=== PATIENT | male | born 1935 | race Caucasian/White ===

== ENCOUNTER 2017-03-14 12:34 | Emergency (ER) | payer MEDICARE ==
[2017-03-14 12:45] VITALS: BMI 24.6
--- NOTE | 2017-03-14 13:50 | C.PDOC ---
History Of Present Illness 81 y/o M c PMHx HTN, HLD, "circulation problem in legs," GERD, hernia repair, R cataract repair, R knee surgery p/w fall yesterday. Patient was walking up stairs from laundry, felt hot in room, felt weak in knees and fell down onto knees. Patient was witnessed by neighbor who states he was unresponsive for 30 seconds and then states patient returned to baseline. No symptoms afterwards. Went to PMD today and instructed to come to ED. Recent cold 1 week prior, now resolved. Quit smoking over 20 years ago. PMD Ruy Gallagher Chief Complaint (Nursing): Syncope History Per: Patient History/Exam Limitations: no limitations Onset/Duration Of Symptoms: Hrs Current Symptoms Are (Timing): Still Present Activity At Onset Of Symptoms: Walking Past Medical History Reviewed: Historical Data, Nursing Documentation, Vital Signs Vital Signs: Last Vital Signs Temp 97.7 F 03/14/17 12:44 Pulse 102 H 03/14/17 14:25 Resp 20 03/14/17 14:25 BP 153/69 H 03/14/17 14:25 Pulse Ox 95 03/14/17 15:38 - Medical History PMH: HTN, Hypercholesterolemia Surgical History: No Surg Hx Family History: States: No Known Family Hx - Social History Hx Alcohol Use: No Hx Substance Use: No - Immunization History Hx Tetanus Toxoid Vaccination: No Hx Influenza Vaccination: Yes Hx Pneumococcal Vaccination: No Review Of Systems Except As Marked, All Systems Reviewed And Found Negative. Constitutional: Negative for: Fever Cardiovascular: Negative for: Chest Pain Physical Exam - Physical Exam Additional Physical Exam Comments: Constitutional: No acute distress. Head: Normocephalic. Atraumatic. Eyes: PERRL. ENT: Moist mucous membranes. Neck: Supple. Cardiovascular: Regular rate. Radial pulse 2+ bilaterally. Chest: No tenderness. Respiratory: Clear to auscultation bilaterally. GI: Soft. Nontender. Nondistended.Pelvis stable. FROM x 4 Back: No CVA tenderness.No midline tenderness. Musculoskeletal: No tenderness or swelling of extremities. Skin: No rash. Neurologic: Alert, no focal deficit. . ED Course And Treatment - Laboratory Results Result Diagrams: 03/14/17 14:26 03/14/17 14:26 O2 Sat by Pulse Oximetry: 95 (RA) Pulse Ox Interpretation: Normal Medical Decision Making Medical Decision Making: EKG: Sinus rhythm, 70 bpm, RBBB, no ST elevations Assessment: 81 y/o M p/w syncopal episode without evidence of resulting trauma. Differential: arrhythmia, ischemia, seizure, stroke, vasovagal, dehydration/ orthostasis Plan: EKG, CBC, CMP, troponin, CXR, Orthostatic vital signs, IVF IMPRESSION: No active pulmonary disease. Orthostatics negative. Labs unremarkable. Discussed case with Dr. Redmond who recommends CT Head as well. In abscence of any significant findings, Dr. Redmond states patient can have further evaluation as outpatient. IMPRESSION: No acute intracranial abnormality. Mild age-related involutional changes. Disposition - Disposition Disposition: HOME/ ROUTINE Disposition Time: 15:35 Condition: STABLE Instructions: Syncope (ED) Forms: [facility] (Indonesian) - Clinical Impression Clinical Impression: Syncope - Scribe Statement The provider has reviewed the documentation as recorded by the Nelsonibzafar Corona All medical record entries made by the Nelsonibe were at my direction and personally dictated by me. I have reviewed the chart and agree that the record accurately reflects my personal performance of the history, physical exam, medical decision making, and the department course for this patient. I have also personally directed, reviewed, and agree with the discharge instructions and disposition.
[2017-03-14] MEDS ORDERED: Sodium Chloride 0.9% 1,000 ML IV STA (14:13)
[2017-03-14 14:26] VITALS: RESP 20
[2017-03-14 14:30] LABS: BASO # 0.1 K/uL (0.0-0.2); BASO % 0.8 % (0.0-2.0); EOS # 0.1 K/uL (0.0-0.7); EOS % 1.5 % (0.0-4.0); HEMATOCRIT 38.5 % (35.0-51.0); LYMPH # 1.6 K/uL (1.0-4.3); LYMPH % 15.8 % (20.0-40.0); MEAN CELL VOLUME 83.7 fL (80.0-94.0); MEAN CORPUSCULAR HEMOGLOBIN 29.6 pg (27.0-31.0); MEAN CORPUSCULAR HGB CONC 35.4 g/dL (33.0-37.0); MEAN PLATELET VOLUME 8.1 fL (7.2-11.7); MONO # 0.8 K/uL (0.0-0.8); RED CELL DISTRIBUTION WIDTH 14.2 % (11.5-14.5)
[2017-03-14] MEDS ORDERED: Sodium Chloride 0.9% 1,000 ML ONE (14:33)
[2017-03-14 14:43] LABS: BILIRUBIN,TOTAL 0.8 mg/dL (0.2-1.3); GFR AFRICAN-AMERICAN > 60; GLUCOSE,RANDOM 89 mg/dL (75-110)
[2017-03-14 14:47] LABS: ALB/GLOB RATIO 1.1 (1.0-2.1); ALKALINE PHOSPHATASE 59 U/L (38-126); ALT/SGPT 24 U/L (21-72); AST/SGOT 35 U/L (17-59); BLOOD UREA NITROGEN 24 mg/dL (9-20); CARBON DIOXIDE 26 mmol/L (22-30); CHLORIDE 101 mmol/L (98-107); POTASSIUM 4.1 mmol/L (3.6-5.2); SODIUM 136 mmol/L (132-148); TOTAL PROTEIN 8.2 g/dL (6.3-8.3)
--- NOTE | 2017-03-14 14:52 | RAD ---
HISTORY: COMPARISON: No prior. TECHNIQUE: Chest PA and lateral FINDINGS: LINES AND TUBES: None. LUNG AND PLEURA: The lungs are well inflated and clear. There is linear atelectasis/scarring in the left lung base. HEART AND MEDIASTINUM: The heart is not enlarged. The hilar and mediastinal contours are within normal limits. SKELETAL STRUCTURES: The bony structures are within normal limits for the patient's age. VISUALIZED UPPER ABDOMEN: Normal. OTHER FINDINGS: None. IMPRESSION: No active pulmonary disease.
--- NOTE | 2017-03-14 15:34 | CT ---
PROCEDURE: CT HEAD WITHOUT CONTRAST. HISTORY: syncope COMPARISON: None available. TECHNIQUE: Axial computed tomography images were obtained through the head/brain without intravenous contrast. Radiation dose: Total exam DLP = 862.97 mGy-cm. This CT exam was performed using one or more of the following dose reduction techniques: Automated exposure control, adjustment of the mA and/or kV according to patient size, and/or use of iterative reconstruction technique. FINDINGS: HEMORRHAGE: No intracranial hemorrhage. BRAIN: Marcano-white matter differentiation is preserved. There is no mass, mass effect or abnormal extra-axial fluid collection. VENTRICLES: There is mild age-related global parenchymal volume loss and proportionate enlargement of the ventricles and cortical sulci. CALVARIUM: The skull base and calvarium are normal. PARANASAL SINUSES: Predominantly clear. MASTOID AIR CELLS: Predominantly clear. OTHER FINDINGS: None. IMPRESSION: No acute intracranial abnormality. Mild age-related involutional changes.
[2017-03-14 16:02] VITALS: BP 135/63; PULSE 70; TEMP 98.8; O2SAT 97
== END 2017-03-14 16:15 | disposition home or self-care (01) ==
LOC: C.ER 12:34
DX: R55 Syncope and collapse (principal); E78.00 Pure hypercholesterolemia, unspecified; I10 Essential (primary) hypertension; Z87.891 Personal history of nicotine dependence
CPT/HCPCS: 70450; 71020; 80053; 82948; 84484; 85025; 96360; 99285; J7040

== ENCOUNTER 2017-04-18 07:19 | Emergency (ER) | payer MEDICARE ==
[2017-04-18 07:20] VITALS: BMI 24.6
[2017-04-18 07:35] VITALS: TEMP 98.1
[2017-04-18] MEDS ORDERED: Sodium Chloride 0.9% 1,000 ML IV ONE (08:11)
[2017-04-18] MEDS ORDERED: MethylPREDNISolone 40 mg Vial IVP STA (08:11)
[2017-04-18] MEDS ORDERED: DiphenhydrAMINE 50 mg/ml Inj IVP STA (08:12)
[2017-04-18] MEDS ORDERED: Albuterol 0.083% Inhal Sol (2.5 mg/3 mL) UD IH STA (08:13)
[2017-04-18] MEDS ORDERED: DiphenhydrAMINE 50 mg/ml Inj ONE (08:19)
[2017-04-18] MEDS ORDERED: Sodium Chloride 0.9% 1,000 ML ONE (08:20)
[2017-04-18] MEDS ORDERED: Albuterol-Ipratrop 3 mg / 0.5 (3 ml) UD ONE (08:31)
--- NOTE | 2017-04-18 08:33 | RAD ---
HISTORY: SOB COMPARISON: 03/14/2017 TECHNIQUE: Chest PA and lateral FINDINGS: LUNGS: No active pulmonary disease. PLEURA: No significant pleural effusion identified. No pneumothorax apparent. CARDIOVASCULAR: Normal. OSSEOUS STRUCTURES: No significant abnormalities. VISUALIZED UPPER ABDOMEN: Normal. OTHER FINDINGS: None. IMPRESSION: No active disease.
--- NOTE | 2017-04-18 08:44 | C.PDOC ---
History Of Present Illness 82 year old male, with PMHx of PVD, hx of chronic sinusitis, presents to ED for evaluation of cold symptoms for the past 3 weeks associated with nasal congestion, runny nose, intermittent nose bleed, and dry cough. Family reports, " noted difficulty breathing due to stuffy nose yesterday". As per family, pt was evaluated by Dentist week ago and was told need tooth extraction, but need clearance. Pt stopped taking Plavix 1 week ago. Otherwise, denies high fever, chills, severe headache, dizziness, visual changes, focal deficits, neck pain, drooling, facial swelling, trismus, chest pain, shortness, of breath, dyspnea, palpitation, wheezing, abd. pain, n/v/d. Ambulate to Ed for evaluation, not in any apparent distress. Time Seen by Provider: 04/18/17 07:33 Chief Complaint (Nursing): Cough, Cold, Congestion History Per: Patient History/Exam Limitations: no limitations Onset/Duration Of Symptoms: Days Current Symptoms Are (Timing): Still Present Recent travel outside of the [place]: No Additional History Per: Patient Past Medical History Reviewed: Historical Data, Nursing Documentation, Vital Signs Vital Signs: Last Vital Signs Temp 98.1 F 04/18/17 11:06 Pulse 78 04/18/17 11:06 Resp 20 04/18/17 11:06 BP 162/68 H 04/18/17 11:06 Pulse Ox 96 04/18/17 11:06 - Medical History PMH: HTN, Hypercholesterolemia Family History: States: Unknown Family Hx - Social History Hx Alcohol Use: No Hx Substance Use: No - Immunization History Hx Tetanus Toxoid Vaccination: Yes Hx Influenza Vaccination: Yes (2018) Hx Pneumococcal Vaccination: Yes Review Of Systems Except As Marked, All Systems Reviewed And Found Negative. Constitutional: Negative for: Fever, Chills ENT: Positive for: Nose Discharge (rhinorrhea, nose bleed), Nose Congestion, Throat Pain Cardiovascular: Negative for: Chest Pain, Palpitations, Light Headedness Respiratory: Positive for: Cough. Negative for: Shortness of Breath, Sputum Gastrointestinal: Negative for: Nausea, Vomiting, Abdominal Pain, Diarrhea Neurological: Negative for: Headache, Dizziness Physical Exam - Physical Exam Appears: Non-toxic, No Acute Distress Skin: Normal Color, Warm, Dry Head: Normacephalic Eye(s): bilateral: PERRL Nose: No Flaring, No Epistaxis, No Deformity, Other (overdried nasal mucosa with multiple dry bloody scabs) Oral Mucosa: Moist, No Drooling Tongue: Normal Appearing Lips: Normal Appearing Teeth: Tender To Palpation (left 2nd upper molar tender to palpation with mild gingival swelling and erythema) Gingiva: Erythema (mild), Swelling (mild), No Bleeding, No Abscess Throat: No Erythema, No Exudate Neck: Trachea Midline, Supple Cardiovascular: Rhythm Regular, No Murmur Respiratory: No Decreased Breath Sounds, No Accessory Muscle Use, No Rales, No Rhonchi, No Stridor, Wheezing (scattered bibasilar) Gastrointestinal/Abdominal: Soft, No Tenderness Extremity: Normal ROM, No Pedal Edema, No Deformity Neurological/Psych: Oriented x3, Normal Speech, Normal Motor, Normal Sensation, Normal Reflexes ED Course And Treatment - Laboratory Results Result Diagrams: 04/18/17 08:47 04/18/17 08:47 Lab Interpretation: No Acute Changes O2 Sat by Pulse Oximetry: 95 (RA) Pulse Ox Interpretation: Normal - CT Scan/US CT sinuses Other Rad Studies (CT/US): Radiology Report Reviewed CT/US Interpretation: IMPRESSION: Chronic paranasal sinusitis involving ethmoid , frontal and left maxillary sinus. No osseous expansion or erosion. No evidence of acute sinusitis. CT head Other Rad Studies (CT/US): Radiology Report Reviewed CT/US Interpretation: FINDINGS: HEMORRHAGE: No intracranial hemorrhage. BRAIN : No mass effect or edema. Mild age related atrophy. No significant chronic white matter ischemic change. VENTRICLES: Unremarkable. No hydrocephalus. CALVARIUM: Unremarkable. PARANASAL SINUSES: Almost complete opacification of left maxillary antrum consistent with chronic sinusitis. Chronic ethmoid sinusitis and chronic frontal sinusitis noted as well. MASTOID AIR CELLS: Unremarkable as visualized. No inflammatory changes. OTHER FINDINGS: None. IMPRESSION: Chronic paranasal sinusitis. No intracranial mass, hemorrhage or evidence of acute infarct. Progress Note: Blood work, UA, influenza AB, CXR, head CT, sinuses CT ordered and reviewed. Pt was given Benadryl, Zofran, Solu-Medrol, IV fluids, and nebulizer treatment. On re-eval, pt remained stable, afebrile, hemodynamicaly stable. Non-toxic. ENT: exam c/w B/L sinusitis, no drooling, no evidence of tooth abscess, no drooling or trismus, no facial cellulitis. Neck: Supple, (-) meningeal sign. Lungs: CTA B/L, BS equal B/L. Abd: benign. neuorlogicaly intact. Blood work review- appears without acute abnormalities. CT head/ sinuses review (+) chr. sinusitis, no other acute IC pathology. Pt and family advised. ref. to f/u with PMD, ENT In 2 -3 days for re-eavl. return if any new changes. PulsEOx 96% RA Disposition Counseled Patient/Family Regarding: Studies Performed, Diagnosis, Need For Followup, Rx Given - Disposition Referrals: Liz Chase DO [[facility]] - Disposition: HOME/ ROUTINE Disposition Time: 10:05 Condition: STABLE Additional Instructions: ENCOURAGE FLUIDS VASELINE NASAL MUCOUS DAILY FOLLOW UP WITH PMD, ENT IN 2-3 DAYS FOR RE-EVALUATION. RETURN TO ED IF ANY WORSENING OR NEW CHANGES. Prescriptions: Cefdinir [Omnicef] 300 mg PO BID #14 cap Loratadine [Claritin] 10 mg PO BID #14 tab Prednisone [Deltasone] 60 mg PO DAILY #9 tablet Instructions: Sinusitis (ED) Forms: [employer] (Cook Islander) Print Language: MACANESE - Clinical Impression Clinical Impression: Sinusitis - PA / TISSUE TECHNOLOGIST / Resident Statement / has reviewed & agrees with the documentation as recorded. - Scribe Statement The provider has reviewed the documentation as recorded by the Nelsonibe Brisa Song All medical record entries made by the Nelsonibe were at my direction and personally dictated by me. I have reviewed the chart and agree that the record accurately reflects my personal performance of the history, physical exam, medical decision making, and the department course for this patient. I have also personally directed, reviewed, and agree with the discharge instructions and disposition.
[2017-04-18 08:52] LABS: BASO # 0.1 K/uL (0.0-0.2); BASO % 0.9 % (0.0-2.0); EOS # 0.2 K/uL (0.0-0.7); EOS % 2.2 % (0.0-4.0); HEMOGLOBIN 12.9 g/dL (12.0-18.0); LYMPH # 1.5 K/uL (1.0-4.3); LYMPH % 14.1 % (20.0-40.0); MEAN CELL VOLUME 82.7 fL (80.0-94.0); MEAN CORPUSCULAR HEMOGLOBIN 29.7 pg (27.0-31.0); MEAN CORPUSCULAR HGB CONC 35.9 g/dL (33.0-37.0); MEAN PLATELET VOLUME 7.6 fL (7.2-11.7); MONO # 0.9 K/uL (0.0-0.8); MONO % 8.9 % (0.0-10.0); NEUT # 7.8 K/uL (1.8-7.0); NEUT % 73.9 % (50.0-75.0); RBC 4.35 Mil/uL (4.40-5.90); RED CELL DISTRIBUTION WIDTH 13.8 % (11.5-14.5); WHITE BLOOD COUNT 10.6 K/uL (4.8-10.8)
[2017-04-18 09:04] LABS: BLOOD UREA NITROGEN 32 mg/dL (9-20); CALCIUM 9.4 mg/dl (8.6-10.4); GFR AFRICAN-AMERICAN > 60; GFR NON-AFRICAN AMERICAN > 60
[2017-04-18 09:48] LABS: URINE BILIRUBIN NEGATIVE (NEGATIVE); URINE BLOOD NEGATIVE (NEGATIVE); URINE CLARITY Clear (Clear); URINE COLOR Straw (YELLOW); URINE GLUCOSE (UA) NORMAL (Normal); URINE LEUKOCYTE ESTERASE NEG Leu/uL (Negative); URINE NITRATE NEGATIVE (NEGATIVE); URINE PROTEIN NEGATIVE (NEGATIVE)
--- NOTE | 2017-04-18 10:07 | CT ---
PROCEDURE: CT HEAD WITHOUT CONTRAST. HISTORY: headache COMPARISON: 03/14/2017 TECHNIQUE: Axial computed tomography images were obtained through the head/brain without intravenous contrast. Radiation dose: Total exam DLP = 933.95 mGy-cm. This CT exam was performed using one or more of the following dose reduction techniques: Automated exposure control, adjustment of the mA and/or kV according to patient size, and/or use of iterative reconstruction technique. FINDINGS: HEMORRHAGE: No intracranial hemorrhage. BRAIN: No mass effect or edema. Mild age related atrophy. No significant chronic white matter ischemic change. VENTRICLES: Unremarkable. No hydrocephalus. CALVARIUM: Unremarkable. PARANASAL SINUSES: Almost complete opacification of left maxillary antrum consistent with chronic sinusitis. Chronic ethmoid sinusitis and chronic frontal sinusitis noted as well. MASTOID AIR CELLS: Unremarkable as visualized. No inflammatory changes. OTHER FINDINGS: None. IMPRESSION: Chronic paranasal sinusitis. No intracranial mass, hemorrhage or evidence of acute infarct.
--- NOTE | 2017-04-18 10:14 | CT ---
PROCEDURE: CT SINUSES WITHOUT CONTRAST HISTORY: fever, congestion, headache COMPARISON: None TECHNIQUE: Contiguous axial CT images of the paranasal sinuses were obtained. Coronal and sagittal reformats were generated. Radiation dose: Total exam DLP = ribs 619.96 mGy-cm. This CT exam was performed using one or more of the following dose reduction techniques: Automated exposure control, adjustment of the mA and/or kV according to patient size, and/or use of iterative reconstruction technique. FINDINGS: FRONTAL SINUSES: Mucoperiosteal thickening left frontal sinus ETHMOID SINUSES: Mucoperiosteal thickening ethmoid sinuses SPHENOID SINUSES: No mucoperiosteal thickening. No fluid or mass. MAXILLARY SINUSES: Almost complete opacification of left maxillary sinus. Right maxillary sinus free of mucoperiosteal thickening. SINUS DRAINAGE: Left ostiomeatal unit occluded. Left frontoethmoidal recess occluded. Left Sphenoethmoidal recess occluded. NASAL SEPTUM: No significant nasal septal deviation. There is left-sided bony nasal spur which does not occlude the airway. MASS: None. SKULL BASE: Unremarkable. TEMPORAL BONES: Middle ears and mastoid grossly unremarkable. OTHER FINDINGS: None. IMPRESSION: Chronic paranasal sinusitis involving ethmoid, frontal and left maxillary sinus. No osseous expansion or erosion. No evidence of acute sinusitis.
[2017-04-18 11:07] VITALS: BP 162/68; PULSE 78; RESP 20
[2017-04-18 18:07] VITALS: O2SAT 95
== END 2017-04-18 11:13 | disposition home or self-care (01) ==
LOC: C.ER 07:19
DX: J32.9 Chronic sinusitis, unspecified (principal)
CPT/HCPCS: 70450; 70486; 71046; 80048; 81001; 85025; 87804; 94640; 96361; 96374; 96375; 99283; J1200; J2405; J2920; J7040